=== PATIENT | female | born 1970 | race Caucasian/White ===

== ENCOUNTER → 2016-04-22 | Outpatient (CLI) | payer OTHER ==
[~2016-04-22] MED LIST: LEVOXYL0.1 MG PO; LORTAB 5/500 501 TAB PO; MOTRIN 600600 MG/TAB PO; NORCO 325 MG-51 TAB PO; PERCOCET 325 MG1 TA2 PO; PRAVACHOL10 MG PO; levothyroxin
== END ==
LOC: COL.RAD 08:04
DX: R10.11 Right upper quadrant pain (principal)

== ENCOUNTER → 2016-06-25 | Outpatient (CLI) | payer OTHER | LOC: COL.RAD 10:31 | DX: J33.9 Nasal polyp, unspecified (principal) ==

== ENCOUNTER → 2016-12-22 | Outpatient (CLI) | payer OTHER | LOC: MC.RAD 12:56 | DX: N64.4 Mastodynia (principal) ==

== ENCOUNTER → 2017-01-13 | Outpatient (CLI) | payer SELFPAY ==
[2017-01-13 10:57] LABS: PH 6 (5-8); SQUAMOUS EPITHELIAL 0-2 /hpf; URINE APPEARANCE Clear; URINE BACTERIA Rare /hpf; URINE BILIRUBIN Negative (NEGATIVE); URINE BLOOD Negative (NEGATIVE); URINE COLOR Yellow; URINE GLUCOSE Negative (NEGATIVE); URINE KETONE Negative (NEGATIVE); URINE RBC 0-2 /hpf; URINE UROBILINOGEN Negative (NEGATIVE); URINE WBC 0-2 /hpf
== END ==
LOC: COL.LAB 09:11
DX: R10.9 Unspecified abdominal pain (principal)

== ENCOUNTER → 2017-05-21 | Outpatient (CLI) | payer SELFPAY ==
[2017-05-21 08:25] LABS: HEMATOCRIT 41.7 % (37.0-47.0); HEMOGLOBIN 14.2 g/dl (12.5-16.0); MEAN CELL VOLUME 94 fl (80.0-100.0); MEAN CORPUSCULAR HEMOGLOBIN 32 pg (27.0-31.0); MEAN CORPUSCULAR HGB CONC 34 g/dl (33.0-37.0); MEAN PLATELET VOLUME 10.4 fl (7.4-10.4); PLATELET COUNT 182 K/mm3 (130-400); RED BLOOD COUNT 4.45 M/mm3 (4.10-5.30); REDCELL DISTRIBUTION WIDTH-CV 12.6 % (11.5-14.5)
[2017-05-21 08:34] LABS: CHOLESTEROL RISK RATIO 6.3
[2017-05-21 09:05] LABS: THYROID STIMULATING HORMONE 6.7 uIU/mL (0.465-4.680)
== END ==
LOC: COL.LAB 07:55
DX: R07.9 Chest pain, unspecified (principal); G89.29 Other chronic pain; R10.11 Right upper quadrant pain; E78.2 Mixed hyperlipidemia; E03.9 Hypothyroidism, unspecified
CPT/HCPCS: A9537

== ENCOUNTER → 2017-06-07 | Outpatient (CLI) | payer SELFPAY | LOC: COL.CARD 09:59 | DX: R00.1 Bradycardia, unspecified (principal) ==

== ENCOUNTER → 2017-06-10 | Outpatient (CLI) | payer SELFPAY ==
[2017-06-10 08:57] LABS: COLLECTION METHOD CLEAN CATCH
[2017-06-10 09:16] LABS: MUCOUS Present /lpf; PH 5 (5-8); URINE APPEARANCE Hazy; URINE BACTERIA Moderate /hpf; URINE BILIRUBIN Negative (NEGATIVE); URINE BLOOD 1+ (NEGATIVE); URINE COLOR Yellow; URINE GLUCOSE Negative (NEGATIVE); URINE KETONE Negative (NEGATIVE); URINE LEUKOCYTE ESTERASE Trace (NEGATIVE); URINE NITRATE Negative (NEGATIVE); URINE PROTEIN(semi-quant) Negative (NEGATIVE); URINE RBC 0-2 /hpf; URINE UROBILINOGEN Negative (NEGATIVE)
[2017-06-10 09:31] LABS: CREATININE, serum 0.65 mg/dL (0.52-1.25)
[2017-06-11 01:00] LABS: T3 FREE (TRI-IODOTHYRONINE) 2.3 pg/mL (1.7-3.7)
[2017-06-12 12:06] LABS: HELICOBACTER IgG 0.15 OD Ratio (<0.8)
== END ==
LOC: COL.LAB 08:24
DX: R94.6 Abnormal results of thyroid function studies (principal)

== ENCOUNTER → 2017-06-17 | Outpatient (CLI) | payer OTHER ==
[2017-06-17 09:04] LABS: MUCOUS Present /lpf; PH 5 (5-8); URINE APPEARANCE Hazy; URINE BACTERIA Rare /hpf; URINE BILIRUBIN Negative (NEGATIVE); URINE BLOOD Negative (NEGATIVE); URINE COLOR Yellow; URINE GLUCOSE Negative (NEGATIVE); URINE KETONE Negative (NEGATIVE); URINE LEUKOCYTE ESTERASE Negative (NEGATIVE); URINE NITRATE Negative (NEGATIVE); URINE PROTEIN(semi-quant) Negative (NEGATIVE); URINE RBC 0-2 /hpf; URINE UROBILINOGEN Negative (NEGATIVE); URINE WBC 0-2 /hpf
[2017-06-17 09:12] LABS: COLLECTION METHOD CLEAN CATCH
== END ==
LOC: COL.LAB 08:25
DX: R31.9 Hematuria, unspecified (principal)

== ENCOUNTER 2017-07-23 21:50 | Emergency (ER) | payer OTHER ==
[~2017-07-23] VITALS: Ht 157.5 cm; Wt 68.2 kg
[2017-07-23 21:57] VITALS: BP 156/85; TEMP 99.2
[2017-07-23] MEDS ORDERED: SYNTHROID0.075 MG/T PO (22:48)
[2017-07-23 23:38] VITALS: PULSE 65
== END 2017-07-23 23:45 | disposition home or self-care (01) ==
LOC: COL.ER 21:50
DX: S93.402A Sprain of unspecified ligament of left ankle, initial encounter (principal); E03.9 Hypothyroidism, unspecified; Z98.890 Other specified postprocedural states; W01.0XXA Fall on same level from slipping, tripping and stumbling without subsequent striking against object, initial encounter; X50.0XXA Overexertion from strenuous movement or load, initial encounter; Y92.009 Unspecified place in unspecified non-institutional (private) residence as the place of occurrence of the external cause

== ENCOUNTER → 2017-09-01 | Outpatient (CLI) | payer OTHER ==
[~2017-09-01] MED LIST changes: +SYNTHROID0.075 MG/T PO
== END ==
LOC: COL.LAB 15:32
DX: R10.9 Unspecified abdominal pain (principal)

== ENCOUNTER → 2017-09-21 | Outpatient (CLI) | payer OTHER | LOC: COL.RAD 12:09 | DX: M75.111 Incomplete rotator cuff tear or rupture of right shoulder, not specified as traumatic (principal); S43.491A Other sprain of right shoulder joint, initial encounter ==

== ENCOUNTER → 2017-10-12 | Outpatient (CLI) | payer SELFPAY | LOC: COL.LAB 08:10 | DX: M25.572 Pain in left ankle and joints of left foot (principal); M75.101 Unspecified rotator cuff tear or rupture of right shoulder, not specified as traumatic; Z98.890 Other specified postprocedural states ==

== ENCOUNTER → 2017-10-15 | Outpatient (CLI) | payer OTHER ==
[2017-10-15 09:04] LABS: COLLECTION METHOD CLEAN CATCH
[2017-10-15 09:08] LABS: BASO % 0.4 % (0.0-2.0); EOS # 0.1 (0.0-0.7); EOS % 1.6 % (0-4.0); GRAN % 57.6 % (42.2-75.2); HEMATOCRIT 40.7 % (37.0-47.0); HEMOGLOBIN 13.8 g/dl (12.5-16.0); LYMPH # 2.4 (1.2-3.4); LYMPH % 34.4 % (20.0-51.0); MEAN CELL VOLUME 94 fl (80.0-100.0); MEAN CORPUSCULAR HEMOGLOBIN 32 pg (27.0-31.0); MEAN CORPUSCULAR HGB CONC 34 g/dl (33.0-37.0); MEAN PLATELET VOLUME 10.5 fl (7.4-10.4); MONO # 0.4 (0.1-0.6); MONO % 5.6 % (1.7-9.3); PLATELET COUNT 214 K/mm3 (130-400); RED BLOOD COUNT 4.32 M/mm3 (4.10-5.30); REDCELL DISTRIBUTION WIDTH-CV 12.5 % (11.5-14.5)
[2017-10-15 09:11] LABS: MUCOUS Present /lpf; PH 7 (5-8); URINE APPEARANCE Clear; URINE BACTERIA Rare /hpf; URINE BILIRUBIN Negative (NEGATIVE); URINE BLOOD Negative (NEGATIVE); URINE COLOR Yellow; URINE GLUCOSE Negative (NEGATIVE); URINE KETONE Negative (NEGATIVE); URINE LEUKOCYTE ESTERASE Negative (NEGATIVE); URINE NITRATE Negative (NEGATIVE); URINE PROTEIN(semi-quant) Negative (NEGATIVE); URINE RBC 0-2 /hpf; URINE UROBILINOGEN Negative (NEGATIVE)
[2017-10-15 09:13] LABS: INR 1.1 (0.8-3.0); PROTHROMBIN TIME 12.5 SECONDS (9.7-12.8)
[2017-10-15 09:17] LABS: CALCIUM 8.9 mg/dL (8.4-10.2); CREATININE, serum 0.6 mg/dL (0.52-1.25)
[2017-10-15 09:48] LABS: THYROID STIMULATING HORMONE 4.06 uIU/mL (0.465-4.680)
== END ==
LOC: COL.LAB 08:36
PROVIDERS: Family Medicine
DX: M75.101 Unspecified rotator cuff tear or rupture of right shoulder, not specified as traumatic (principal)

== ENCOUNTER → 2017-10-15 | Outpatient (CLI) | payer OTHER | LOC: COL.CARD 07:54 | DX: M75.101 Unspecified rotator cuff tear or rupture of right shoulder, not specified as traumatic (principal) ==

== ENCOUNTER → 2017-10-28 | Outpatient (CLI) | payer OTHER | LOC: COL.RAD 15:54 | DX: Z01.818 Encounter for other preprocedural examination (principal); M75.101 Unspecified rotator cuff tear or rupture of right shoulder, not specified as traumatic ==

== ENCOUNTER → 2018-01-06 | Outpatient (CLI) | payer OTHER ==
[2018-01-06 18:32] LABS: THYROID STIMULATING HORMONE 4.63 uIU/mL (0.465-4.680)
== END ==
LOC: ZCOL.LAB 17:36
DX: R94.6 Abnormal results of thyroid function studies (principal)

== ENCOUNTER → 2018-03-22 | Outpatient (CLI) | payer SELFPAY | LOC: ZLAB.FHCC 15:36 | DX: R10.30 Lower abdominal pain, unspecified (principal) ==

== ENCOUNTER → 2018-03-31 | Outpatient (CLI) | payer SELFPAY ==
[2018-03-31 13:55] LABS: ALBUMIN 4.2 gm/dL (3.5-5.0); BILIRUBIN,TOTAL 0.5 mg/dL (0.0-1.0); CALCIUM 9.1 mg/dL (8.4-10.2); CREATININE, serum 0.6 mg/dL (0.52-1.25); POTASSIUM 4.2 mmol/L (3.4-5.0)
== END ==
LOC: ZLAB.FHCC 12:48
PROVIDERS: Family Medicine
DX: E78.5 Hyperlipidemia, unspecified (principal); R10.9 Unspecified abdominal pain

== ENCOUNTER 2018-05-04 13:15 | Emergency (ER) | payer SELFPAY ==
[~2018-05-04] VITALS: Ht 157.5 cm; Wt 67.7 kg
[2018-05-04 13:28] VITALS: TEMP 97.3
[2018-05-04] MEDS ORDERED: ULTRAM 50MG TAB50 MG PO (15:15)
[2018-05-04 15:50] LABS: BASO % 0.3 % (0.0-2.0); EOS # 0.1 (0.0-0.7); EOS % 0.6 % (0-4.0); GRAN # 7.4 (1.4-6.5); GRAN % 65.5 % (42.2-75.2); HEMATOCRIT 39.2 % (37.0-47.0); HEMOGLOBIN 13.2 g/dl (12.5-16.0); LYMPH # 3.2 (1.2-3.4); MEAN CELL VOLUME 95 fl (80.0-100.0); MEAN CORPUSCULAR HEMOGLOBIN 32 pg (27.0-31.0); MEAN CORPUSCULAR HGB CONC 34 g/dl (33.0-37.0); MEAN PLATELET VOLUME 10.8 fl (7.4-10.4); MONO # 0.6 (0.1-0.6); MONO % 5.2 % (1.7-9.3); PLATELET COUNT 230 K/mm3 (130-400); RED BLOOD COUNT 4.14 M/mm3 (4.10-5.30); REDCELL DISTRIBUTION WIDTH-CV 12.7 % (11.5-14.5)
[2018-05-04 16:01] LABS: ALANINE AMINOTRANSFERASE 16 U/L (9-52); ALBUMIN 4.2 gm/dL (3.5-5.0); ALKALINE PHOSPHATASE 75 U/L (50-136); ANION GAP 9 mmol/L (7-16); AST,SGOT 16 U/L (15-37); BILIRUBIN,TOTAL 0.4 mg/dL (0.0-1.0); BLOOD UREA NITROGEN 16 mg/dL (7-17); C-REACTIVE PROTEIN < 0.5 mg/dL (0.0-0.9); CALCIUM 8.6 mg/dL (8.4-10.2); CARBON DIOXIDE 27 mmol/L (22-30); CHLORIDE 100 mmol/L (98-107); CREATININE, serum 0.52 mg/dL (0.52-1.25); GLUCOSE 89 mg/dL (74-106); POTASSIUM 3.4 mmol/L (3.4-5.0); SODIUM 136 mmol/L (137-145); TOTAL PROTEIN 7.1 gm/dL (6.4-8.2)
[2018-05-04] MEDS ORDERED: ZOFRAN 4MG T4 MG/TAB PO (16:29)
[2018-05-04] MEDS ORDERED: NORCO 325 MG-51 TAB PO (16:29)
[2018-05-04 16:40] VITALS: BP 158/97; PULSE 45
== END 2018-05-04 16:50 | disposition home or self-care (01) ==
LOC: COL.ER 13:15
PROVIDERS: Emergency Medicine
DX: T40.4X5A Adverse effect of other synthetic narcotics, initial encounter (principal); E03.9 Hypothyroidism, unspecified; Z09 Encounter for follow-up examination after completed treatment for conditions other than malignant neoplasm; Z98.890 Other specified postprocedural states
CPT/HCPCS: J2405; J7030

== ENCOUNTER → 2018-06-24 | Outpatient (CLI) | payer SELFPAY ==
[~2018-06-24] MED LIST changes: +ULTRAM 50MG TAB50 MG PO; +ZOFRAN 4MG T4 MG/TAB PO
== END ==
LOC: COL.RAD 09:32
DX: N85.8 Other specified noninflammatory disorders of uterus (principal)

== ENCOUNTER → 2018-07-07 | Outpatient (CLI) | payer SELFPAY | LOC: COL.RAD 15:49 | DX: D72.9 Disorder of white blood cells, unspecified (principal); R07.9 Chest pain, unspecified ==

== ENCOUNTER 2018-08-10 22:51 | Emergency (ER) | payer SELFPAY ==
[~2018-08-10] VITALS: Ht 157.5 cm; Wt 64.5 kg
[2018-08-10 23:02] VITALS: BP 183/97; TEMP 97.2
[2018-08-10 23:38] LABS: COLLECTION METHOD CLEAN CATCH
[2018-08-10 23:44] LABS: MUCOUS Present /lpf; PH 5 (5-8); SQUAMOUS EPITHELIAL 0-2 /hpf; URINE APPEARANCE Clear; URINE BACTERIA Rare /hpf; URINE BILIRUBIN Negative (NEGATIVE); URINE BLOOD 1+ (NEGATIVE); URINE COLOR Yellow; URINE GLUCOSE Negative (NEGATIVE); URINE KETONE Negative (NEGATIVE); URINE LEUKOCYTE ESTERASE Negative (NEGATIVE); URINE NITRATE Negative (NEGATIVE); URINE PROTEIN(semi-quant) Negative (NEGATIVE); URINE RBC 0-2 /hpf; URINE UROBILINOGEN Negative (NEGATIVE)
[2018-08-10 23:54] LABS: BASO % 0.2 % (0.0-2.0); EOS # 0.1 (0.0-0.7); EOS % 0.8 % (0-4.0); GRAN # 6.4 (1.4-6.5); HEMATOCRIT 43.9 % (37.0-47.0); HEMOGLOBIN 14.6 g/dl (12.5-16.0); LYMPH # 3.4 (1.2-3.4); LYMPH % 32.5 % (20.0-51.0); MEAN CELL VOLUME 95 fl (80.0-100.0); MEAN CORPUSCULAR HEMOGLOBIN 32 pg (27.0-31.0); MEAN CORPUSCULAR HGB CONC 33 g/dl (33.0-37.0); MEAN PLATELET VOLUME 10.3 fl (7.4-10.4); MONO # 0.6 (0.1-0.6); MONO % 5.2 % (1.7-9.3); PLATELET COUNT 245 K/mm3 (130-400); RED BLOOD COUNT 4.62 M/mm3 (4.10-5.30); REDCELL DISTRIBUTION WIDTH-CV 12.9 % (11.5-14.5)
[2018-08-10 23:57] LABS: ALANINE AMINOTRANSFERASE 27 U/L (9-52); ALBUMIN 4.7 gm/dL (3.5-5.0); ALKALINE PHOSPHATASE 105 U/L (50-136); ANION GAP 10 mmol/L (7-16); AST,SGOT 27 U/L (15-37); BILIRUBIN,TOTAL 0.5 mg/dL (0.0-1.0); BLOOD UREA NITROGEN 15 mg/dL (7-17); C-REACTIVE PROTEIN 0.9 mg/dL (0.0-0.9); CALCIUM 9.8 mg/dL (8.4-10.2); CARBON DIOXIDE 25 mmol/L (22-30); CHLORIDE 102 mmol/L (98-107); CREATININE, serum 0.54 (0.52-1.25); GLUCOSE 125 mg/dL (74-106); LIPASE 128 U/L (23-300); POTASSIUM 3.4 mmol/L (3.4-5.0); SODIUM 137 mmol/L (137-145); TOTAL PROTEIN 8.3 gm/dL (6.4-8.2)
[2018-08-11 00:06] LABS: TROPONIN-I < 0.012 ng/mL (0.000-0.035)
[2018-08-11] MEDS ORDERED: SPRINTEC 35 MCG1 TAB PO (00:43)
[2018-08-11] MEDS ORDERED: CARAFATE 1GM1 G PO (00:43)
[2018-08-11] MEDS ORDERED: PRILOSEC 20MG20 MG PO (00:44)
[2018-08-11 02:10] VITALS: PULSE 54
[2018-08-11] MEDS ORDERED: ZOFRAN ODT4 MG PO (02:50)
== END 2018-08-11 02:55 | disposition home or self-care (01) ==
LOC: COL.ER 22:51
PROVIDERS: Physician Assistant
DX: K59.00 Constipation, unspecified (principal); N83.201 Unspecified ovarian cyst, right side
CPT/HCPCS: J1170; J2405; J2550; J7030; Q9967

== ENCOUNTER → 2018-12-14 | Outpatient (CLI) | payer SELFPAY ==
[~2018-12-14] MED LIST changes: +CARAFATE 1GM1 G PO; +PRILOSEC 20MG20 MG PO; +SPRINTEC 35 MCG1 TAB PO; +ZOFRAN ODT4 MG PO
== END ==
LOC: ZCOL.LAB 17:26
DX: Z01.89 Encounter for other specified special examinations (principal)

== ENCOUNTER → 2020-06-25 | Outpatient (CLI) | payer OTHER | LOC: MC.RAD 10:30 | DX: Z12.31 Encounter for screening mammogram for malignant neoplasm of breast (principal) ==

== ENCOUNTER → 2022-02-03 | Outpatient (CLI) | payer SELFPAY | LOC: COL.RAD 12:20 | DX: R07.9 Chest pain, unspecified (principal) ==

== ENCOUNTER 2023-12-28 15:05 | Emergency (ER) | payer SELFPAY ==
[2023-12-28 15:21] VITALS: TEMP 97.9
[2023-12-28 17:39] LABS: BASO % 0.4 % (0.0-2.0); EOS # 0.1 K/mm3 (0.0-0.7); EOS % 1.8 % (0.0-4.0); GRAN # 3.6 K/mm3 (1.4-6.5); GRAN % 48.8 % (42.2-75.2); HEMATOCRIT 41.8 % (37.0-47.0); LYMPH # 3.3 K/mm3 (1.2-3.4); MEAN CELL VOLUME 92 fl (80.0-100.0); MEAN CORPUSCULAR HEMOGLOBIN 31 pg (27-31); MEAN CORPUSCULAR HGB CONC 34 g/dl (33.0-37.0); MEAN PLATELET VOLUME 10.7 fl (7.4-10.4); MONO # 0.4 K/mm3 (0.1-0.6); MONO % 4.7 % (1.7-9.3); PLATELET COUNT 202 K/mm3 (130-400); RED BLOOD COUNT 4.56 M/mm3 (4.10-5.30); REDCELL DISTRIBUTION WIDTH-CV 12.3 % (11.5-14.5)
[2023-12-28 18:23] LABS: INR 1.1 (0.8-3.0); PROTHROMBIN TIME 11.9 SECONDS (9.7-12.8)
[2023-12-28 19:17] VITALS: BP 158/94; PULSE 47
== END 2023-12-28 19:17 | disposition home or self-care (01) ==
LOC: COL.ER 15:05
PROVIDERS: Nurse Practitioner
DX: R04.0 Epistaxis (principal)

== ENCOUNTER 2024-01-18 15:18 | Emergency (ER) | payer SELFPAY ==
[~2024-01-18] VITALS: Ht 152.4 cm; Wt 69.1 kg
[2024-01-18 15:28] VITALS: BP 122/80; TEMP 99
[2024-01-18] MEDS ORDERED: ANUSOL HC CREAM30 GM TP (17:36)
[2024-01-18 17:53] VITALS: PULSE 49
== END 2024-01-18 17:53 | disposition home or self-care (01) ==
LOC: COL.ER 15:18
DX: K64.4 Residual hemorrhoidal skin tags (principal)